=== PATIENT | female | born 1955 | race Hispanic/Latino ===

== ENCOUNTER 2023-07-02 23:28 | Inpatient (IN) | payer MEDICAID, SELFPAY ==
[2023-07-03 00:10] LABS: #Monocytes 0.6 thou/uL (0.11-0.59); #Neutrophils 5.4 thou/uL (1.40-6.50); %Basophils 0.4 % (0.0-1.0); %Eosinophils 0.6 % (0.0-10.0); %Lymphocytes 14.8 % (21.0-51.0); %Monocytes 8.7 % (0.0-10.0); %Neutrophils 74.7 % (42.0-75.0); Hematocrit 53.3 % (36.0-47.0); Hemoglobin 17.7 g/dL (12.0-16.0); Mean Corpuscular HGB CONC 33.2 g/dL (32.0-36.0); Mean Corpuscular Hemoglobin 28.6 pg (27.0-31.0); Mean Corpuscular Volume 86.2 fl (78.0-98.0); Platelet Count 182 10x3/uL (130-400); RBC Distribution Width 12.9 % (11.5-14.5); Red Blood Cell (RBC) Count 6.18 mill/uL (4.20-5.40); White Blood Cell (WBC) Count 7.2 10x3/uL (4.8-10.8)
[2023-07-03] MEDS ORDERED: Metoclopramide HCl 10 MG/2 ML VIAL ONE (00:10)
[2023-07-03 00:20] LABS: Base Excess 0.3 mEq/L (-2.0 to +3.0); Calcium, Ionized (venous) 1.19 mmol/L (1.16-1.32); Chloride (VBG) 94 mmol/L (98-106); Hematocrit-VBG 57 % (36.0-47.0); Hemoglobin (Hb) 19.3 g/dL (11.7-16.1); Potassium (VBG) 5.54 mmol/L (3.70-5.30); Sodium 133 mmol/L (133-146); pH (venous) 7.322 (7.32-7.43)
[2023-07-03 00:38] LABS: Troponin I Less than 0.010 ng/mL (< 0.028)
[2023-07-03 00:48] LABS: Albumin 3.3 g/dL (3.4-4.8)
[2023-07-03 00:49] LABS: Chloride 93 mmol/L (98-107); Potassium 5.8 mmol/L (3.5-5.1); Sodium 129 mmol/L (136-145)
[2023-07-03 00:50] LABS: Calcium 9.6 mg/dL (7.8-10.44)
[2023-07-03 00:51] LABS: Protein, Total 8.3 g/dL (5.8-8.1)
[2023-07-03 00:52] LABS: Anion Gap 17 mmol/L (10-20); Bilirubin, Total 0.6 mg/dL (0.2-1.2); Carbon Dioxide 25 mmol/L (23-31)
[2023-07-03 00:53] LABS: Alkaline Phosphatase 92 U/L (40-110)
[2023-07-03 00:54] LABS: Calc. Creatinine Clearance 0 mL/min (70-130); Estimated GFR 34
[2023-07-03] MEDS ORDERED: Ipratropium Bromide 2.5 ml Neb ONE (00:54)
[2023-07-03 00:55] LABS: BUN (Urea Nitrogen) 49 mg/dL (9.8-20.1); Glucose 599 mg/dL (80-115)
[2023-07-03 00:56] LABS: AST (SGOT) 15 U/L (5-34); Magnesium 2.1 mg/dL (1.6-2.6)
[2023-07-03 00:57] LABS: ALT (SGPT) 10 U/L (8-55); Lipase 59 U/L (8-78)
[2023-07-03] MEDS ORDERED: niCARdipine 25 MG/10 ML SDV ONE (01:10)
[2023-07-03] MEDS ORDERED: Sodium Chloride 0.9% 250 ML 250 ML ONE (01:10)
[2023-07-03] MEDS ORDERED: HumaLOG 300 UNITS/3 ML VIAL ONE (01:39)
[2023-07-03 01:43] LABS: PTT 29.7 sec (22.9-36.1); Prothrombin Time 13.9 sec (12.0-14.7)
[2023-07-03] MEDS ORDERED: Piperacillin/Tazobactam 4.5 GM VIAL ONE (01:55)
[2023-07-03] MEDS ORDERED: Sodium Chloride 0.9% 100 ML ONE (01:55)
[2023-07-03 02:13] LABS: SARS-CoV-2 NAA Rapid Test DETECTED (NotDetected)
[2023-07-03 03:13] LABS: Troponin I Less than 0.010 ng/mL (< 0.028)
[2023-07-03] MEDS ORDERED: Electrolyte Replacement Protocol IVPB SCH (06:07)
[2023-07-03] MEDS ORDERED: Acetaminophen 325 MG/10.15 ML UDCUP PO PRN (06:07)
[2023-07-03] MEDS ORDERED: Ondansetron PF 4 MG/2 ML Vial IVP PRN (06:07)
[2023-07-03] MEDS ORDERED: Insulin Regular 300 UNITS/3 ML VIAL SC PRN ×2 (06:07→20:14)
[2023-07-03] MEDS ORDERED: Sodium Chloride 0.9% 1,000 ML IV SCH (06:15)
[2023-07-03] MEDS ORDERED: niCARdipine 25 MG in Sodium Chloride 0.9% 250 ML 250 ML IVPB SCH (06:15)
[2023-07-03 06:40] VITALS: BMI 27.6
[2023-07-03 06:41] LABS: #Eosinphils 0.1 thou/uL (0.0-0.7); #Monocytes 0.7 thou/uL (0.11-0.59); %Basophils 0.4 % (0.0-1.0); %Eosinophils 0.9 % (0.0-10.0); %Lymphocytes 16.9 % (21.0-51.0); %Monocytes 9.9 % (0.0-10.0); Hematocrit 52.1 % (36.0-47.0); Hemoglobin 17.1 g/dL (12.0-16.0); Mean Corpuscular HGB CONC 32.8 g/dL (32.0-36.0); Mean Corpuscular Hemoglobin 28.8 pg (27.0-31.0); Mean Corpuscular Volume 87.9 fl (78.0-98.0); Mean Platelet Volume 10.1 fL (7.4-10.4); Platelet Count 195 10x3/uL (130-400); RBC Distribution Width 12.7 % (11.5-14.5); Red Blood Cell (RBC) Count 5.93 mill/uL (4.20-5.40)
[2023-07-03 07:04] LABS: Anion Gap 12 mmol/L (10-20); BUN (Urea Nitrogen) 42 mg/dL (9.8-20.1); Calc. Creatinine Clearance 63 mL/min (70-130); Carbon Dioxide 25 mmol/L (23-31); Chloride 105 mmol/L (98-107); Estimated GFR 67; Glucose 173 mg/dL (80-115); Magnesium 1.9 mg/dL (1.6-2.6); Potassium 4.3 mmol/L (3.5-5.1); Sodium 138 mmol/L (136-145)
[2023-07-03 07:09] LABS: Troponin I 0.015 ng/mL (< 0.028)
[2023-07-03] MEDS ORDERED: Magnesium 2 GM/50 ML(in water) 2 GM in Premix 1 BAG IVPB SCH ×2 (07:30→11:00)
[2023-07-03] MEDS ORDERED: Glucagon 1 MG/ML KIT IM PRN (08:53)
[2023-07-03] MEDS ORDERED: Dextrose 5% in Water 1,000 ML IV PRN ×2 (08:53→20:14)
[2023-07-03] MEDS ORDERED: Dextrose 50% Abboject 50 ML SYRINGE SLOW IVP PRN (08:53)
[2023-07-03] MEDS ORDERED: Famotidine/PF 20 mg/2ml Vial SLOW IVP SCH (09:00)
[2023-07-03 09:20] LABS: Hemoglobin A1c Greater than 14.0 % (4.0-6.0)
[2023-07-03] MEDS ORDERED: Losartan 25 MG TAB PO SCH (09:30)
[2023-07-03] MEDS: Sodium Chloride 0.9% 1,000 ML IV SCH ×2 (10:44→17:18)
[2023-07-03] MEDS ORDERED: FLU VACC QS2023(65UP)/MF59C/PF 60 MCG/0.5 ML SYRINGE IM ONE (12:00)
[2023-07-03] MEDS ORDERED: Iopamidol-370 76% 500 ML MDV (1 ML CHARGE) ONE (12:44)
[2023-07-04] MEDS: Senokot S 8.6-50 MG TAB PO SCH ×3 (00:17→22:02)
[2023-07-04 03:42] LABS: #Eosinphils 0.1 thou/uL (0.0-0.7); #Monocytes 0.7 thou/uL (0.11-0.59); %Basophils 0.5 % (0.0-1.0); %Lymphocytes 20.8 % (21.0-51.0); %Neutrophils 67.9 % (42.0-75.0); Hematocrit 50.9 % (36.0-47.0); Hemoglobin 16.3 g/dL (12.0-16.0); Mean Corpuscular Hemoglobin 28.2 pg (27.0-31.0); Mean Corpuscular Volume 88.2 fl (78.0-98.0); Mean Platelet Volume 10.1 fL (7.4-10.4); Platelet Count 229 10x3/uL (130-400); Red Blood Cell (RBC) Count 5.77 mill/uL (4.20-5.40); White Blood Cell (WBC) Count 7.3 10x3/uL (4.8-10.8)
[2023-07-04] MEDS ORDERED: hydrALAZINE 20 MG/ML VIAL SLOW IVP PRN (04:06)
[2023-07-04] MEDS ORDERED: hydrALAZINE 20 MG/ML VIAL ONE (04:11)
[2023-07-04 04:12] LABS: ALT (SGPT) Less than 7 U/L (8-55); AST (SGOT) 10 U/L (5-34); Albumin 2.8 g/dL (3.4-4.8); Alkaline Phosphatase 82 U/L (40-110); Anion Gap 11 mmol/L (10-20); BUN (Urea Nitrogen) 32 mg/dL (9.8-20.1); Bilirubin, Total 0.3 mg/dL (0.2-1.2); Calc. Creatinine Clearance 65 mL/min (70-130); Calcium 8.8 mg/dL (7.8-10.44); Carbon Dioxide 28 mmol/L (23-31); Chloride 106 mmol/L (98-107); Estimated GFR 71; Globulin 3.8 g/dL (2.4-3.5); Glucose 102 mg/dL (80-115); Magnesium 2.5 mg/dL (1.6-2.6); Potassium 3.9 mmol/L (3.5-5.1); Protein, Total 6.6 g/dL (5.8-8.1); Sodium 141 mmol/L (136-145)
[2023-07-04] MEDS: Levothyroxine Sodium 100 MCG TAB PO SCH (06:44)
[2023-07-04] MEDS: Polyethylene Glycol 3350 17 GM Packet PO SCH (08:48)
[2023-07-04] MEDS: Losartan 25 MG TAB PO SCH (08:48)
[2023-07-04] MEDS: Sodium Chloride 0.9% 1,000 ML IV SCH (10:44)
[2023-07-04] MEDS: Insulin Regular 300 UNITS/3 ML VIAL SC PRN (11:30)
[2023-07-05] MEDS: Sodium Chloride 0.9% 1,000 ML IV SCH ×2 (02:06→11:44)
[2023-07-05] MEDS: Levothyroxine Sodium 100 MCG TAB PO SCH (06:02)
[2023-07-05] MEDS: Insulin Regular 300 UNITS/3 ML VIAL SC PRN ×2 (06:05→12:10)
[2023-07-05] MEDS: Losartan 25 MG TAB PO SCH (08:44)
[2023-07-05] MEDS: Polyethylene Glycol 3350 17 GM Packet PO SCH (08:45)
[2023-07-05] MEDS: Senokot S 8.6-50 MG TAB PO SCH (08:45)
[2023-07-05 11:57] VITALS: TEMP 98.3
[2023-07-05 12:29] VITALS: BP 154/73
== END 2023-07-05 14:18 | disposition home or self-care (01) | DRG 85 ==
LOC: ERS 23:28 → CCU 07-03 01:41 → SURG A 07-04 18:02
PROVIDERS: ADMIT Specialist; ATTEND Specialist
PROC: 8E0ZXY6 Isolation (ICD-10-PCS; principal; 2023-07-03)
DX: S06.5X0A Traumatic subdural hemorrhage without loss of consciousness, initial encounter (principal); U07.1 COVID-19; R47.9 Unspecified speech disturbances; R29.715 NIHSS score 15; E11.65 Type 2 diabetes mellitus with hyperglycemia; E87.5 Hyperkalemia; R40.2412 Glasgow coma scale score 13-15, at arrival to emergency department; W19.XXXA Unspecified fall, initial encounter; R53.1 Weakness; I11.0 Hypertensive heart disease with heart failure; I50.9 Heart failure, unspecified; R09.02 Hypoxemia; Z79.4 Long term (current) use of insulin; Z79.899 Other long term (current) drug therapy
CPT/HCPCS: 36415; 36416; 70450; 71045; 71275; 80048; 80053; 82010; 82805; 83036; 83605; 83690; 83735; 83880; 83930; 84145; 84484; 85025; 85610; 85730; 87040; 93005; 93306; 93880; 96365; 96366; 96367; 96368; J0360; J1815; J2543; J2765; J3475; J3490; J7050; J7611; Q9967; U0002